=== PATIENT | male | born 1990 | race African-American/Black ===

== ENCOUNTER 2017-01-17 01:01 | Emergency (ER) | payer OTHER ==
[~2017-01-17] VITALS: Ht 180.3 cm; Wt 91.8 kg
[~2017-01-17 01:01] MED LIST: NO HOME MEDICATIONS
[2017-01-17 01:03] VITALS: TEMP 98.6
[2017-01-17] MEDS ORDERED: ULTRAM 50MG TAB50 MG PO (01:38)
[2017-01-17 02:10] VITALS: BP 118/65; PULSE 72
== END 2017-01-17 02:12 | disposition home or self-care (01) ==
LOC: COL.ER 01:01
DX: M54.2 Cervicalgia (principal); F17.210 Nicotine dependence, cigarettes, uncomplicated
CPT/HCPCS: Q9967